=== PATIENT | female | born 1960 | race Caucasian/White ===

== ENCOUNTER 2020-12-29 08:13 | Inpatient (IN) | payer MEDICAID ==
[~2020-12-29] VITALS: Ht 167.6 cm; Wt 55.8 kg
[2020-12-29 08:25] VITALS: BP_SYST 149
--- NOTE | 2020-12-29 08:25 | NUR ---
Patient to ER bed 3 to gown for evaluation. Side rails up. Report given to OCHOA FRAZIER.
[2020-12-29] MEDS ORDERED: NACL 0.9% 1,000 ML IV ONE (08:30)
--- NOTE | 2020-12-29 08:30 | NUR ---
Pt came to ER from abdominal pain, feeling nauseous, hx colon CA, use of hollistic treatment only at home. Pt VSS, resting in [facility], states "I feel like I am dying".
--- NOTE | 2020-12-29 08:40 | NUR ---
ER at bedside examining patient.
[2020-12-29] MEDS ORDERED: ONDANSETRON 4 MG ODT TAB PO ONE (08:45)
--- NOTE | 2020-12-29 09:00 | NUR ---
# 20 gauge angiocath placed to LAC. Use of asceptic technique. Opsite placed over site. Blood return noted. Blood for lab drawn from site. Flushed with 10 cc of normal saline. No evidence of infiltration noted. Patient tolerated well.
[2020-12-29 09:05] LABS: BASOPHILS # (AUTO) 0.1 K/uL (0.0-0.2); BASOPHILS % (AUTO) 0.7 % (0.0-2.0); EOSINOPHILS # (AUTO) 0.1 K/uL (0.0-0.4); EOSINOPHILS % (AUTO) 1.2 % (0.0-4.0); HEMATOCRIT 37.5 % (36-48); HEMOGLOBIN 12.5 g/dL (12.0-16.0); LYMPHOCYTES # (AUTO) 1.1 K/uL (1.0-5.5); LYMPHOCYTES % (AUTO) 13.1 % (20.5-51.5); MEAN CORPUSCULAR HEMOGLOBIN 31 pg (27-31); MEAN CORPUSCULAR HGB CONC 33 % (32-36); MEAN CORPUSCULAR VOLUME 94 fL (79.0-98.0); MONOCYTES # (AUTO) 0.6 K/uL (0.0-1.0); MONOCYTES % (AUTO) 7.2 % (1.7-9.3); NEUTROPHILS # (AUTO) 6.5 K/uL (1.8-7.7); NEUTROPHILS % (AUTO) 77.8 % (40.0-70.0); PLATELET COUNT (AUTO) 376 K/uL (130-430); RED BLOOD CELL COUNT(AUTO) 3.99 MIL/uL (4.2-6.2); RED CELL DISTRIBUTION WIDTH 13.6 % (9.0-15.0); WHITE BLOOD COUNT (AUTO) 8.4 K/uL (4.8-10.8)
[2020-12-29 09:18] LABS: CALCIUM 8.9 mg/dL (8.4-11.0); CREATININE 0.85 mg/dL (0.55-1.30); POTASSIUM 4.2 mmol/L (3.5-5.1)
[2020-12-29 09:23] LABS: ALBUMIN 3.4 g/dL (3.4-4.8); TOTAL BILIRUBIN 0.5 mg/dL (0.0-1.0)
[2020-12-29 12:09] LABS: BILIRUBIN,URINE NEGATIVE (NEGATIVE); CLARITY/URINE CLEAR (CLEAR); COLOR,URINE YELLOW (YELLOW); GLUCOSE,URINE NEGATIVE (NEGATIVE); KETONES,URINE 3+ (NEGATIVE); LEUKOCYTE ESTERASE ,URINE NEGATIVE (NEGATIVE); NITRITE, URINE NEGATIVE (NEGATIVE); PH,URINE 5.5 (5.0-8.0); PROTEIN URINE NEGATIVE (NEGATIVE); UROBILINOGEN,URINE 0.2 (0.2-1.0)
[2020-12-29 12:14] LABS: BLOOD, URINE TRACE (NEGATIVE)
--- NOTE | 2020-12-29 12:20 | NUR ---
Patient will be admitted to care of Jimmie. Admitted to MedSurg unit. Will go to room 123. Belongings list completed. Complete and up to date summary report printed. SBAR report to be given at bedside with opportunity for questions.
[2020-12-29 12:22] LABS: BACTERIA,URINE RARE /HPF (None Seen); RBC,URINE 0-3 /HPF (0-3); WBC,URINE 0-3 /HPF (0-3)
[2020-12-29 12:23] LABS: MUCUS,URINE 1+ /LPF (None Seen)
--- NOTE | 2020-12-29 12:40 | NUR ---
Med Rec completed, no meds at this time
--- NOTE | 2020-12-29 13:19 | NUR ---
Pt resting in rney comfortably no complaints
--- NOTE | 2020-12-29 14:00 | NUR ---
Pt stated she would AMA due to not wanting to have COVID test. Expained risks of AMA and educated
--- NOTE | 2020-12-29 14:12 | NUR ---
Pt stated she would stay considering she not be COVID tested with the understanding that she will be PUI. Med Surg notified, awaiting private room for isolation
[2020-12-29] MEDS ORDERED: ACETAMINOPHEN 325 MG TABLET PO PRN (14:45)
[2020-12-29] MEDS ORDERED: MORPHINE 4 MG INJ. 4 MG/ML VIAL IVP PRN (14:45)
--- NOTE | 2020-12-29 15:02 | NUR ---
PT IS A FULL CODE
--- NOTE | 2020-12-29 15:23 | NUR ---
report received from FREDDIE Morris
[2020-12-29] MEDS: ONDANSETRON HCL 4 MG/2 ML VIAL IVP PRN ×2 (15:38→21:26)
[2020-12-29] MEDS: D5NS 1,000 ML IV SCH (15:39)
--- NOTE | 2020-12-29 16:55 | NUR ---
REPORT GIVEN TO NURSE FOR RM 123.
--- NOTE | 2020-12-29 17:04 | NUR ---
ADMISSION NOTE Received patient from ER via allan, received report from MONSERRAT FRAZIER. Patient admitted with diagnosis of ABDOMINAL PAIN . Patient oriented to hospital routine, call light, toileting and safety-patient verbalized understanding.
--- NOTE | 2020-12-29 17:04 | NUR ---
Patient will be admitted to care of BEDSIDE NURSE . Admitted to MEDSURGE unit. Will go to room 123. Belongings list completed. Complete and up to date summary report printed. SBAR report to be given at bedside with opportunity for questions.
--- NOTE | 2020-12-29 17:06 | NUR ---
CONSULTATION PAGED REASON FOR CONSULTATION:ABDOMINAL PAIN WAS CONSULT CALLED?Y PERSON WHO WAS NOTIFIED:BEKA CONSULTING PHYSICIAN:HANNAH RHOADES [employer] SPECIALTY:GASTROENTEOLOGY [employer] PHONE NUMBER:[phone] REQUESTING PHYSICIAN:AZEB SILVA
[2020-12-29 17:20] VITALS: BP_SYST 154
--- NOTE | 2020-12-29 17:48 | NUR ---
Seen and examined by the medical doctor md Dr. Taylor
--- NOTE | 2020-12-29 17:49 | NUR ---
Ambulates to bathroom with steady gait, on COVID/PUI isolation patient refused for COVID swab
--- NOTE | 2020-12-29 18:33 | NUR ---
Feeling nauseated after clear liquid diet, on iv hydration.
[2020-12-29 20:15] VITALS: BP_SYST 147
[2020-12-30 00:45] VITALS: BP_SYST 141
[2020-12-30] MEDS: D5NS 1,000 ML IV SCH ×3 (00:48→20:59)
[2020-12-30] MEDS: MORPHINE 2 MG/ML INJ. SYRINGE IVP PRN ×2 (00:48→21:04)
[2020-12-30] MEDS: METOCLOPRAMIDE HCL 10 MG/2 ML VIAL IVP PRN ×3 (00:54→20:59)
--- NOTE | 2020-12-30 01:31 | NUR ---
HIGH ALERT NOTE: Called Dr. LAW back AND identified within the medical roster to verify physician authenticity. NOTIFIED THAT PATIENT IS REQUESTING FOR SOMETHING TO HELP HER SLEEP AND/OR FOR AGITATION. ORDERED RESTORIL 15MG PO HSP PRN FOR AGITATION/ANXIETY/SLEEPLESSNESS.
[2020-12-30] MEDS ORDERED: TEMAZEPAM 15 MG CAPSULE PO PRN (01:45)
--- NOTE | 2020-12-30 07:40 | NUR ---
OPENING NOTES PT AWAKE, ALERT, AND ORIENTED. NONLABORED BREATHING NOTED ON ROOM AIR. PT C/O PAIN ON IV LINE, WILL ATTEMPT TO RE-INSERT. NO ACUTE DISTRESS NOTED. ALL NEEDS MET. CALL LIGHT IN REACH. FALL AND ASPIRATION PRECAUTIONS IN PLACE.
[2020-12-30 08:00] VITALS: BP_SYST 132
--- NOTE | 2020-12-30 09:45 | NUR ---
IV RE-INSERTION: Complaining of pain to IV site. Attempted to re-insert on right forearm. Unable to successfully insert. Asked other RN, awaiting for available time.
[2020-12-30] MEDS ORDERED: BARIUM SULFATE 135 ML SUSP.RECON (E-Z-HD) PO ONE (10:07)
--- NOTE | 2020-12-30 10:10 | NUR ---
PT TAKEN OFF THE FLOOR TO RADIOLOGY
[2020-12-30 12:00] VITALS: BP_SYST 127
--- NOTE | 2020-12-30 12:39 | NUR ---
IV RE-INSERTION: FREDDIE Mc re-inserted 22G IV line on right forearm, successful after first attempt. pt c/o nausea, administered prn medication and continued D5NS at 125mL/hr. will monitor for signs of infiltration
[2020-12-30 16:00] VITALS: BP_SYST 136
--- NOTE | 2020-12-30 18:56 | NUR ---
CLOSING NOTES PT AWAKE, ALERT, AND ORIENTED. NONLABORED BREATHING NOTED ON ROOM AIR. IV LINE INTACT AND PATENT, NO SIGNS OF INFILTRATION NOTED, FLUIDS RUNNING ORDERED. NO ACUTE DISTRESS NOTED. ALL NEEDS MET. CALL LIGHT IN REACH. FALL AND ASPIRATION PRECAUTIONS IN PLACE. WILL ENDORSE TO NOC NURSE
--- NOTE | 2020-12-30 19:35 | NUR ---
Opening note Received patient awake, sitting in high fowlers position. Non labored breathing on room air. IVF infusing via IV to RFA. Side rails up 2x, bed is locked in lowest position and call light w/in reach. Patient is ambulatory w/steady gait and does not have bed alarm. She demonstrates use of call light. She has visitor at bed side. Updated board and reviewed isolation precautions.
[2020-12-30 20:00] VITALS: BP_SYST 141
--- NOTE | 2020-12-30 20:59 | NUR ---
Meds, IVF Patient requesting nausea medication and pain med. She requested Reglan and it was administered along w/2mg Morphine. IVF empty and hung new bag; infusing as ordered. Provided warm blankets, towels, wash wipes as requested. Call light w/in reach. Isolation precautions observed.
--- NOTE | 2020-12-30 23:30 | NUR ---
V/S, IV attempt VSS and presently denies nausea and reports no pain. Two IV attempts were unsuccessful; requested a second nurse to start IV.
[2020-12-31] VITALS: BP_SYST 148
--- NOTE | 2020-12-31 00:30 | NUR ---
IV start New IV #22 angiocath was placed to left wrist by charge nurse.
[2020-12-31] MEDS: ONDANSETRON HCL 4 MG/2 ML VIAL IVP PRN ×3 (01:34→22:29)
[2020-12-31] MEDS: MORPHINE 2 MG/ML INJ. SYRINGE IVP PRN ×4 (01:44→22:26)
--- NOTE | 2020-12-31 01:45 | NUR ---
Zofran, Morphine Patient requesting nausea medication and administered Zofran as ordered. She reports abdominal pain and requesting medication; 2mg Morphine administered.
[2020-12-31] MEDS: D5NS 1,000 ML IV SCH ×3 (06:45→23:54)
--- NOTE | 2020-12-31 07:10 | NUR ---
SBAR report to GI / closing note Patient signed EGD consent form, she had no further needs. GI called and requested SBAR report, which was provided. Endorsed care to day shift nurse; patient is stable.
[2020-12-31] MEDS: METOCLOPRAMIDE HCL 10 MG/2 ML VIAL IVP PRN ×2 (07:30→15:28)
[2020-12-31 08:00] VITALS: BP_SYST 145
[2020-12-31] MEDS ORDERED: MEPERIDINE 100 MG INJ. 100 MG/ML VIAL ONE (08:02)
[2020-12-31] MEDS ORDERED: SIMETHICONE 40 MG/0.6 ML ML ONE (08:02)
[2020-12-31] MEDS ORDERED: MIDAZOLAM HCL 5 MG/5 ML VIAL ONE (08:03)
--- NOTE | 2020-12-31 08:50 | NUR ---
PT STATED SHE IS UNABLE TO DRINK GOLYTELY. PT INFORMED MD WILL BE NOTIFIED.
[2020-12-31 12:00] VITALS: BP_SYST 140
--- NOTE | 2020-12-31 12:05 | NUR ---
Note Pt is on PUI precautions as pt refuses to do Covid test. Pt had EGD procedure in her room from 0930am to 1030am. Pt requesting pain medications and nausea medication at 11am. Both given and pt asleep at this time.
--- NOTE | 2020-12-31 13:36 | NUR ---
Dietitian Recommendations *Continue NPO. *Recommend: advance diet when medically appropriate. Please see Nutritional Assessment for details. ANAHY BURCH
[2020-12-31 15:39] LABS: BASOPHILS % (AUTO) 0.8 % (0.0-2.0); EOSINOPHILS # (AUTO) 0.1 K/uL (0.0-0.4); EOSINOPHILS % (AUTO) 2.3 % (0.0-4.0); HEMATOCRIT 35.6 % (36-48); HEMOGLOBIN 12.2 g/dL (12.0-16.0); LYMPHOCYTES % (AUTO) 17.5 % (20.5-51.5); MEAN CORPUSCULAR HEMOGLOBIN 31 pg (27-31); MEAN CORPUSCULAR HGB CONC 34 % (32-36); MEAN CORPUSCULAR VOLUME 92 fL (79.0-98.0); MONOCYTES # (AUTO) 0.5 K/uL (0.0-1.0); MONOCYTES % (AUTO) 8.5 % (1.7-9.3); NEUTROPHILS % (AUTO) 70.9 % (40.0-70.0); PLATELET COUNT (AUTO) 361 K/uL (130-430); RED BLOOD CELL COUNT(AUTO) 3.87 MIL/uL (4.2-6.2); WHITE BLOOD COUNT (AUTO) 5.7 K/uL (4.8-10.8)
[2020-12-31 15:55] LABS: CALCIUM 8.6 mg/dL (8.4-11.0); CREATININE 0.67 mg/dL (0.55-1.30)
[2020-12-31 16:00] VITALS: BP_SYST 138
[2020-12-31 16:05] LABS: POTASSIUM 2.6 mmol/L (3.5-5.1)
[2020-12-31] MEDS ORDERED: BISACODYL 5 MG TABLET.DR (DULCOLAX) PO ONE (17:00)
[2020-12-31] MEDS ORDERED: POTASSIUM CHLORIDE 40 MEQ in NS 250 ML IV ONE (17:00)
[2020-12-31] MEDS ORDERED: GOLYTELY / COLYTE SOLUTION 4 LITERS PO ONE (18:00)
--- NOTE | 2020-12-31 18:55 | NUR ---
Note Pt has been checked on q1' and PRN all shift for needs and care. Isolation precautions all shift for PUI. Pt took her Dulcolax tabs, stated she did not eat much the last 5 days and wants to drink Alirio slowly - has nausea/vomiting the last few days. Call light within reach. Pain tolerable at this time.
[2020-12-31 20:00] VITALS: BP_SYST 145
--- NOTE | 2020-12-31 20:51 | NUR ---
Jaswant Taylor s/w Luz Maria
--- NOTE | 2020-12-31 21:03 | NUR ---
DR. CEBALLOS CALLED BACK AND HE WAS INFORMED PT IS UNABLE TO DRINK GOLYTELY. NEW ORDERS RECEIVED FOR PT TO RESUME CLEAR LIQUID DIET, DRINK SIPS OF GOLYTELY UNTIL FINISHED AND TO CANCEL TAP WATER ENEMA IN AM..
--- NOTE | 2020-12-31 22:29 | NUR ---
ZOFRAM 4MG GIVEN IV FOR C/O NAUSEA AND VOMITING.
--- NOTE | 2020-12-31 23:28 | NUR ---
DR. CEBALLOS CALLED BACK AND GAVE NEW ORDERS FOR MAG CITRATE AND TAP WATER ENEMA IN AM.
[2020-12-31] MEDS ORDERED: MAGNESIUM CITRATE 300 ML ORAL SOLUTION PO ONE (23:30)
--- NOTE | 2020-12-31 23:50 | NUR ---
PT VOMITED ALL THE MAG CITRATE THAT SHE DRANK. WILL NOTIFY DR. CEBALLOS.
--- NOTE | 2021-01-01 00:57 | NUR ---
Paged Dr. Logan s/w Dimple
[2021-01-01] MEDS ORDERED: BISACODYL 5 MG TABLET.DR (DULCOLAX) PO ONE (06:30)
--- NOTE | 2021-01-01 06:30 | NUR ---
DR. PENDLETON CALLED BACK AND WAS INFORMED PT VOMITED MAG CITRATE LAST NIGHT. NEW ORDERS GIVEN FOR 4 DULCOLAX TABLETS AND TAP WATER ENEMA X2.
[2021-01-01] MEDS ORDERED: BISACODYL 5 MG TABLET.DR (DULCOLAX) ONE (06:49)
--- NOTE | 2021-01-01 06:51 | NUR ---
TAP WATER ENEMA GIVEN X2 AND PT'S BOWEL OUTPUT IS NOT CLEAR. WILL NOTIFY DR. PENDLETON.
[2021-01-01] MEDS: ONDANSETRON HCL 4 MG/2 ML VIAL IVP PRN ×3 (06:55→20:23)
--- NOTE | 2021-01-01 07:10 | NUR ---
ENDORSED TAP WATER ENEMA'S STATUS TO DAY SHIFT NURSE FOR FOLLOW UP WITH DR. PENDLETON.
[2021-01-01] MEDS ORDERED: MEPERIDINE 100 MG INJ. 100 MG/ML VIAL ONE (07:16)
[2021-01-01] MEDS ORDERED: SIMETHICONE 40 MG/0.6 ML ML ONE (07:16)
[2021-01-01] MEDS ORDERED: MIDAZOLAM HCL 5 MG/5 ML VIAL ONE (07:17)
[2021-01-01 08:00] VITALS: BP_SYST 144
--- NOTE | 2021-01-01 08:00 | NUR ---
RECEIVED PATIENT AAO ON ROOM AIR BREATHING EVEN AND UNLABORED NO SIGN OF DISTRESS. IV INFUSING AT PRESCRIBED RATE. SAFETY PRECAUTIONS IN PLACE. WILL CONTINUE TO MONITOR.
[2021-01-01 08:21] LABS: BASOPHILS % (AUTO) 0.7 % (0.0-2.0); EOSINOPHILS # (AUTO) 0.1 K/uL (0.0-0.4); EOSINOPHILS % (AUTO) 2.1 % (0.0-4.0); HEMATOCRIT 35.6 % (36-48); HEMOGLOBIN 12.1 g/dL (12.0-16.0); LYMPHOCYTES # (AUTO) 0.8 K/uL (1.0-5.5); MEAN CORPUSCULAR HEMOGLOBIN 31 pg (27-31); MEAN CORPUSCULAR HGB CONC 34 % (32-36); MEAN CORPUSCULAR VOLUME 91 fL (79.0-98.0); MONOCYTES # (AUTO) 0.4 K/uL (0.0-1.0); MONOCYTES % (AUTO) 7.7 % (1.7-9.3); NEUTROPHILS # (AUTO) 3.9 K/uL (1.8-7.7); NEUTROPHILS % (AUTO) 74.5 % (40.0-70.0); PLATELET COUNT (AUTO) 357 K/uL (130-430); RED CELL DISTRIBUTION WIDTH 13.7 % (9.0-15.0); WHITE BLOOD COUNT (AUTO) 5.2 K/uL (4.8-10.8)
[2021-01-01 08:31] LABS: CALCIUM 8.3 mg/dL (8.4-11.0); CREATININE 0.59 mg/dL (0.55-1.30)
[2021-01-01 08:32] LABS: INR 1.1 (0.8-1.2); PROTHROMBIN TIME 11.6 SECS (9.5-12.5)
[2021-01-01 08:34] LABS: POTASSIUM 2.6 mmol/L (3.5-5.1)
[2021-01-01] MEDS ORDERED: POTASSIUM CHLORIDE 60 MEQ in NS 500 ML IV SCH (08:45)
[2021-01-01] MEDS ORDERED: POTASSIUM CHLORIDE 20 MEQ/PKT PACKET PO ONE ×2 (10:00→20:00)
--- NOTE | 2021-01-01 10:15 | NUR ---
REPORT GIVEN TO SAURABH. PATIENT RESTING IN BED ON ROOM AIR BREATHING EVEN AND UNLABORED NO SIGN OF DISTRESS. SAFETY PRECAUTIONS IN PLACE.
--- NOTE | 2021-01-01 10:31 | NUR ---
RECEIVED REPORT FROM CHAPO (RN) USING SBAR REPORTING. PATIENT STABLE AT THIS TIME. WILL CONTINUE TO MONITOR.
[2021-01-01] MEDS ORDERED: MAGNESIUM SULFATE/D5W 100 ML IV ONE (10:45)
[2021-01-01 13:02] VITALS: BP_SYST 131
[2021-01-01] MEDS: MORPHINE 2 MG/ML INJ. SYRINGE IVP PRN ×2 (14:18→21:56)
[2021-01-01] MEDS: D5NS 1,000 ML IV SCH ×2 (14:45→23:35)
[2021-01-01 15:28] VITALS: BP_SYST 147
[2021-01-01 16:00] VITALS: BP_SYST 147
[2021-01-01 16:16] LABS: CREATININE 0.58 mg/dL (0.55-1.30)
[2021-01-01 16:20] LABS: POTASSIUM 2.9 mmol/L (3.5-5.1)
[2021-01-01] MEDS ORDERED: COMMUNICATION ORDER XX ONE (18:00)
[2021-01-01] MEDS: POLYETHYLENE GLYCOL 3350, 17 GM/ POWD.PACK PO SCH (18:55)
--- NOTE | 2021-01-01 19:05 | NUR ---
CLOSING NOTES: PATIENT IS AWAKE, ALERT LAYING DOWN IN BED. TOLERATED OXYGEN ON ROOM AIR WITH NO DISTRESS NOTED. IV LINE PATENT AND INTACT NO INFILTRATION NOTED. DENIES ANY PAIN AT THE MOMENT. SAFETY, FALL, ISOLATION, AND ASPIRATION PRECAUTIONS REMAINED IN PLACE. BED LOCKED IN LOWEST POSITION AND CALL LIGHT IN REACH. WILL CONTINUE TO MONITOR PATIENT FOR ANY CHANGES. Addendum: 01/01/21 at 1920 by Yared Gould RN WILL ENDORSE PATIENT CARE TO ONCOMING SPORT PSYCHOLOGIST NURSE.
--- NOTE | 2021-01-01 19:45 | NUR ---
Opening note Received patient awake, sitting on chair at bedside. Non labored breathing on room air. IVF infusing via IV to Lt wrist. Side rails up 2x, bed is locked in lowest position and call light w/in reach. Patient is ambulatory w/steady gait and does not have bed alarm. She demonstrates use of call light. Patient started taking Miralax w/ Gatorade and had a bowel movement. Updated board and reviewed isolation precautions.
[2021-01-01 20:00] VITALS: BP_SYST 120
--- NOTE | 2021-01-01 20:25 | NUR ---
Meds- Zofran Patient reporting nausea and Zofran given as ordered. Due med, 40 meq KCL packet given; she swallowed, felt nausea-did not have emesis; tolerated. She has taken in 40% of Miralax-gatorade solution is encouraged to take more. There was small spill/soiled restroom and it was cleaned. She was provided w/new anti slip socks and also provided with Bedside commode.TM
[2021-01-01] MEDS: METOCLOPRAMIDE HCL 10 MG/2 ML VIAL IVP PRN (21:42)
[2021-01-01 21:53] LABS: CALCIUM 8.1 mg/dL (8.4-11.0); CREATININE 0.7 mg/dL (0.55-1.30)
--- NOTE | 2021-01-01 21:56 | NUR ---
nausea/vomit, pain med Patient had emesis and noted 200ml in bag. Administered Reglan IVP as ordered. She is reporting moderate abdominal pain and Morphine 2mg administered. She continues to have bowel movements; last one appears yellow with very small particles.
[2021-01-01 22:06] LABS: POTASSIUM 2.9 mmol/L (3.5-5.1)
--- NOTE | 2021-01-01 22:06 | NUR ---
critical lab Received critical lab result from Shireen Frye level is 2.9, will notify
--- NOTE | 2021-01-01 22:20 | NUR ---
HIGH ALERT NOTE: Called Dr. Chirinos back at [phone] identified within the medical roster to verify physician authenticity for K-rider orders received.
[2021-01-01] MEDS: KCL 20 mEq in 100 mL (PREMIX) 100 ML IV SCH (23:35)
--- NOTE | 2021-01-01 23:40 | NUR ---
K-rider K-rider was started; patient tolerating
[2021-01-02] VITALS: BP_SYST 150
[2021-01-02] MEDS: ONDANSETRON HCL 4 MG/2 ML VIAL IVP PRN ×2 (02:16→12:57)
[2021-01-02] MEDS: POLYETHYLENE GLYCOL 3350, 17 GM/ POWD.PACK PO SCH (02:17)
[2021-01-02] MEDS: KCL 20 mEq in 100 mL (PREMIX) 100 ML IV SCH ×2 (02:17→04:27)
--- NOTE | 2021-01-02 02:17 | NUR ---
2nd of 3rd dose of K-rider 1st dose of 3 is complete and patient tolerated; no sign of infiltration and no redness. Hung second dose. Patient having nausea and Zofran administered. She ambulated to restroom and bowel is not clear; light brown particles noted; she will receive her 2nd dose of Miralax w/Gatorade.
--- NOTE | 2021-01-02 05:36 | NUR ---
Dr. Chirinos S/W Dr. Chirinos and informed K-rider infusing and done 0630. Also report patient drank her colonoscopy prep of Miralax and bowel movements are clear with sandlike particles; He gave orders for lab BMP and Mg and also tap water enema x1; TORB
[2021-01-02] MEDS: METOCLOPRAMIDE HCL 10 MG/2 ML VIAL IVP PRN (05:53)
--- NOTE | 2021-01-02 06:30 | NUR ---
K-rider complete, tap water enema done Tap water enema done one time. Explained procedure to patient; tolerated. Bowel is clear yellow w/ minimal sandlike particle noted.
[2021-01-02] MEDS ORDERED: SIMETHICONE 40 MG/0.6 ML ML ONE (06:46)
[2021-01-02 07:34] LABS: CALCIUM 8.1 mg/dL (8.4-11.0); CREATININE 0.51 mg/dL (0.55-1.30); POTASSIUM 3.4 mmol/L (3.5-5.1)
--- NOTE | 2021-01-02 07:59 | NUR ---
opening notes pt prepped for colonoscopy at this time.
[2021-01-02 08:00] VITALS: BP_SYST 131
[2021-01-02] MEDS: D5NS 1,000 ML IV SCH ×3 (08:00→20:35)
[2021-01-02] MEDS: fentaNYL CITRATE/PF 100 MCG/2 ML AMP ONE ×3 (08:03→08:27)
[2021-01-02] MEDS: MIDAZOLAM HCL 5 MG/5 ML VIAL ONE ×5 (08:03→08:39)
[2021-01-02] MEDS ORDERED: DIPHENHYDRAMINE INJ 50 MG/ML VIAL ONE (08:34)
[2021-01-02] MEDS ORDERED: fentaNYL CITRATE/PF 100 MCG/2 ML AMP ONE (08:41)
[2021-01-02] MEDS ORDERED: ONDANSETRON HCL 4 MG/2 ML VIAL IVP ONE (08:48)
--- NOTE | 2021-01-02 09:00 | NUR ---
IV RE-INSERTION: IV LINE INFILTRATED. FREDDIE MCKEON SUCCESSFULLY INSERTED 22G ON RIGHT FOREARM. Will observe for any signs of infiltration. PT HAVING COLONOSCOPY DONE AT THIS TIME AT BEDSIDE.
--- NOTE | 2021-01-02 09:35 | NUR ---
COLONSCOPY DONE AT THIS TIME
--- NOTE | 2021-01-02 09:39 | NUR ---
CONSULTATION: REASON FOR CONSULT: CECAL MASS CONSULTING PHYSICIAN: MARIUSZ ORDERED BY: ANI SPOKE WITH STEFAN [phone]
[2021-01-02 12:00] VITALS: BP_SYST 136
--- NOTE | 2021-01-02 12:57 | NUR ---
pt c/o nausea, administered prn med as ordered per md, education given, tolerated well. pt eating lunch at this time
[2021-01-02 16:00] VITALS: BP_SYST 143
--- NOTE | 2021-01-02 18:33 | NUR ---
CLOSING NOTES PT AWAKE, ALERT, AND ORIENTED. NONLABORED BREATHING NOTED ON ROOM AIR, TOLERATING WELL. IV LINE INTACT AND PATENT, NO SIGNS OF INFILTRATION NOTED, FLUIDS RUNNING ORDERED. NO ACUTE DISTRESS NOTED. ALL NEEDS MET. CALL LIGHT IN REACH. FALL AND ASPIRATION PRECAUTIONS IN PLACE. SEEN BY DR. VEE AT BEDSIDE. WILL ENDORSE TO NOC NURSE.
--- NOTE | 2021-01-02 19:30 | NUR ---
Opening notes Received Pt resting in bed with HOB elevated. Alert and awake, verbally responsive. Stable, 0 distress noted. IVF infusing, IV site L wrist, patent and intact, 0 s/s of infiltration. On RA, stable. Bilateral rails up, bed to lowest position and call light with reach. Able to demonstrate use of call light. Droplet precaution reviewed with PUI.
[2021-01-02 21:41] VITALS: BP_SYST 145
[2021-01-03 00:02] VITALS: BP_SYST 120
[2021-01-03] MEDS: D5NS 1,000 ML IV SCH (03:34)
--- NOTE | 2021-01-03 06:19 | NUR ---
Closing notes Pt resting in bed with HOB elevated, sleeping and easily awaken. Easily aroused by voice and tactile stimuli. Verbally responsive. 0s stat 97% RA, vitals stable, no s/s of distress or complications noted. IVF patent and intact and running as per ordered, no infiltration noted. Able to ambulate to bathroom by self and remain pt to call for assistance. Bed to the lowest with bilateral side rails up and call light within reach.
[2021-01-03 06:58] LABS: ALBUMIN 2.2 g/dL (3.4-4.8); BILIRUBIN,DIRECT 0.1 mg/dL (0.0-0.3); TOTAL BILIRUBIN 0.3 mg/dL (0.0-1.0)
[2021-01-03 08:26] VITALS: BP_SYST 135
--- NOTE | 2021-01-03 08:28 | NUR ---
Tolerate soft bland diet no nausea no abdominal pain , seen and examined by the GI Dr. Chirinos.
--- NOTE | 2021-01-03 09:49 | NUR ---
Paged Dr. Rodrigues for clearance for discharge
[2021-01-03 10:16] VITALS: BP_SYST 135
--- NOTE | 2021-01-03 10:30 | NUR ---
D/C Patient Patient given D/C instructions. Exit Care provided. Patient verbalized understanding. MD discussed with patient the results and treatment provided. Ambulatory with steady gait for discharge to home. Patient in stable condition, ID band removed. IV catheter removed, intact and dressing applied, no active bleeding. Patient educated on pain management, advance diet as tolerated All belongings sent with patient.
--- NOTE | 2021-01-03 11:10 | NUR ---
Patient discharged home accompanied by friend
== END 2021-01-03 11:10 | disposition home or self-care (01) | DRG 241 ==
LOC: SED 08:13 → SMU 12:14 → STU 01-01 10:06 → SMU 01-03 09:30
PROVIDERS: ADMIT Internal Medicine Hospice and Palliative Medicine; ATTEND Internal Medicine Hospice and Palliative Medicine
PROC: 0DB78ZX Excision of Stomach, Pylorus, Via Natural or Artificial Opening Endoscopic, Diagnostic (ICD-10-PCS; principal; 2020-12-31 08:30)
PROC: 0W3P8ZZ Control Bleeding in Gastrointestinal Tract, Via Natural or Artificial Opening Endoscopic (ICD-10-PCS; 2020-12-31 08:30)
PROC: 0DBE8ZX Excision of Large Intestine, Via Natural or Artificial Opening Endoscopic, Diagnostic (ICD-10-PCS; 2021-01-02)
PROC: 0DBE8ZZ Excision of Large Intestine, Via Natural or Artificial Opening Endoscopic (ICD-10-PCS; 2021-01-02)
PROC: 3E0H8GC Introduction of Other Therapeutic Substance into Lower GI, Via Natural or Artificial Opening Endoscopic (ICD-10-PCS; 2021-01-02)
DX: K25.9 Gastric ulcer, unspecified as acute or chronic, without hemorrhage or perforation (principal); K31.1 Adult hypertrophic pyloric stenosis; K29.70 Gastritis, unspecified, without bleeding; K44.9 Diaphragmatic hernia without obstruction or gangrene; K26.9 Duodenal ulcer, unspecified as acute or chronic, without hemorrhage or perforation; K29.80 Duodenitis without bleeding; K64.8 Other hemorrhoids; K63.5 Polyp of colon; R73.9 Hyperglycemia, unspecified; E87.6 Hypokalemia; Z87.19 Personal history of other diseases of the digestive system; Z85.038 Personal history of other malignant neoplasm of large intestine; Z80.3 Family history of malignant neoplasm of breast; Z90.710 Acquired absence of both cervix and uterus
CPT/HCPCS: 36415; 43239; 43255; 45381; 45385; 74249; 76376; 76705; 80048; 80053; 80076; 81000; 82378; 82941; 83605; 83690; 83735; 85025; 85610-TC; 87081; 88305; 88312; 88313; 88342; 96360; 99285; G0378; J1200; J2175; J2250; J2270; J2405; J2765; J3010; J3480; J7040; J7050; Q0162; Q9967

== ENCOUNTER 2021-01-08 20:36 | Inpatient (IN) | payer MEDICAID ==
[~2021-01-08] VITALS: Ht 167.6 cm; Wt 55.3 kg
[~2021-01-08 20:36] MED LIST: BUPIVACAINE /EPINEPHRINE/PF 0.5% 30 ML VIAL INJ ONE; D5W 100 ML IV.SOLN IV ONE; DEXAMETHASONE SOD PHOSPHATE 4 MG/ML VIAL IVP ONE; GLYCOPYRROLATE 0.2 MG/ML VIAL IJ ONE; HYDROmorphone 2 MG/ML VIAL IVP ONE; LR 1,000 ML IV.SOLN IV ONE; METOCLOPRAMIDE HCL 10 MG/2 ML VIAL IVP ONE; MIDAZOLAM HCL 5 MG/5 ML VIAL IVP ONE; ONDANSETRON HCL 4 MG/2 ML VIAL IVP ONE; PHENYLEPHRINE HCL 10 MG/ML VIAL (NEOSYNEPHRINE) IV ONE; PROPOFOL 200MG/ 20ML VIAL (DIPRIVAN) IV ONE; SEVOFLURANE 15 MIN GAS INH ONE; SUCCINYLCHOLINE CHLORIDE 20 MG/ML(QUELICIN) IVP ONE; cefOXitin SODIUM 2 GM/VIAL (MEFOXIN) IV ONE
[2021-01-08 20:43] VITALS: BP_SYST 147
[2021-01-08] MEDS ORDERED: ONDANSETRON HCL 4 MG/2 ML VIAL IVP ONE (21:00)
[2021-01-08] MEDS ORDERED: MORPHINE 4 MG INJ. 4 MG/ML VIAL IVP ONE (21:00)
[2021-01-08] MEDS ORDERED: NACL 0.9% 1,000 ML IV ONE (21:00)
[2021-01-08 21:31] LABS: BASOPHILS % (AUTO) 0.6 % (0.0-2.0); EOSINOPHILS % (AUTO) 0.7 % (0.0-4.0); HEMATOCRIT 35.7 % (36-48); LYMPHOCYTES # (AUTO) 0.9 K/uL (1.0-5.5); LYMPHOCYTES % (AUTO) 13.7 % (20.5-51.5); MEAN CORPUSCULAR HEMOGLOBIN 31 pg (27-31); MEAN CORPUSCULAR HGB CONC 34 % (32-36); MEAN CORPUSCULAR VOLUME 93 fL (79.0-98.0); MONOCYTES # (AUTO) 0.5 K/uL (0.0-1.0); MONOCYTES % (AUTO) 7.2 % (1.7-9.3); NEUTROPHILS % (AUTO) 77.8 % (40.0-70.0); PLATELET COUNT (AUTO) 351 K/uL (130-430); RED BLOOD CELL COUNT(AUTO) 3.83 MIL/uL (4.2-6.2); RED CELL DISTRIBUTION WIDTH 14.4 % (9.0-15.0); WHITE BLOOD COUNT (AUTO) 6.4 K/uL (4.8-10.8)
[2021-01-08 21:52] LABS: CALCIUM 8.8 mg/dL (8.4-11.0); CREATININE 0.81 mg/dL (0.55-1.30)
[2021-01-08 21:58] LABS: ALBUMIN 3.3 g/dL (3.4-4.8); TOTAL BILIRUBIN 0.6 mg/dL (0.0-1.0)
[2021-01-08 22:01] LABS: POTASSIUM 2.7 mmol/L (3.5-5.1)
[2021-01-08] MEDS ORDERED: METOCLOPRAMIDE HCL 10 MG/2 ML VIAL IVP ONE (22:30)
[2021-01-08] MEDS ORDERED: PROCHLORPERAZINE EDISYLATE 10 MG/2 ML VIAL IVP ONE (22:30)
[2021-01-08] MEDS ORDERED: PANTOPRAZOLE SODIUM 40 MG/VIAL (PROTONIX) IVP ONE (23:00)
[2021-01-08] MEDS ORDERED: MAG HYDROX/AL HYDROX/SIMETH 30 ML, DICYCLOMINE HCL 20 MG, LIDOCAINE VISCOUS 2% 15ML (PO... PO ONE ×3 (23:00)
[2021-01-08] MEDS ORDERED: MAGNESIUM SULFATE 50 ML IV PRN (23:45)
[2021-01-08] MEDS ORDERED: MUPIROCIN 2% TOPICAL OINTMENT 22 GM NS PRN (23:45)
[2021-01-08] MEDS ORDERED: METOCLOPRAMIDE HCL 10 MG/2 ML VIAL IVP PRN (23:45)
[2021-01-08] MEDS ORDERED: ZOLPIDEM TARTRATE 5 MG TABLET PO PRN (23:45)
[2021-01-08] MEDS ORDERED: DOCUSATE SODIUM 100 MG CAPSULE PO PRN (23:45)
[2021-01-08] MEDS ORDERED: D5NS 1,000 ML IV ONE (23:45)
[2021-01-08] MEDS ORDERED: ACETAMINOPHEN 325 MG TABLET PO PRN (23:45)
[2021-01-08] MEDS ORDERED: CANNABIS (23:55)
[2021-01-09] MEDS: POTASSIUM CHLORIDE 20 MEQ TAB.PRT.SR PO PRN ×2 (02:17→09:25)
[2021-01-09 03:35] VITALS: BP_SYST 125
[2021-01-09 06:35] LABS: BASOPHILS % (AUTO) 0.8 % (0.0-2.0); EOSINOPHILS # (AUTO) 0.1 K/uL (0.0-0.4); EOSINOPHILS % (AUTO) 2.9 % (0.0-4.0); HEMATOCRIT 28.8 % (36-48); HEMOGLOBIN 9.6 g/dL (12.0-16.0); LYMPHOCYTES # (AUTO) 1.3 K/uL (1.0-5.5); LYMPHOCYTES % (AUTO) 27.2 % (20.5-51.5); MEAN CORPUSCULAR HEMOGLOBIN 31 pg (27-31); MEAN CORPUSCULAR HGB CONC 34 % (32-36); MEAN CORPUSCULAR VOLUME 94 fL (79.0-98.0); MONOCYTES # (AUTO) 0.6 K/uL (0.0-1.0); NEUTROPHILS # (AUTO) 2.6 K/uL (1.8-7.7); NEUTROPHILS % (AUTO) 55.1 % (40.0-70.0); PLATELET COUNT (AUTO) 276 K/uL (130-430); RED BLOOD CELL COUNT(AUTO) 3.07 MIL/uL (4.2-6.2); RED CELL DISTRIBUTION WIDTH 14.1 % (9.0-15.0); WHITE BLOOD COUNT (AUTO) 4.6 K/uL (4.8-10.8)
[2021-01-09 06:55] LABS: CALCIUM 7.9 mg/dL (8.4-11.0); CREATININE 0.73 mg/dL (0.55-1.30)
[2021-01-09 07:17] LABS: POTASSIUM 2.8 mmol/L (3.5-5.1)
[2021-01-09 08:00] VITALS: BP_SYST 140
[2021-01-09] MEDS ORDERED: POTASSIUM CHLORIDE 40 MEQ, LIDOCAINE JECT 2% PF 100 MG 50 MG in NS 250 ML IV ONE (09:00)
[2021-01-09] MEDS: HEPARIN SODIUM,PORCINE 5,000 UNITS/ML VIAL SUBCUT SCH ×2 (09:26→21:00)
[2021-01-09 12:18] VITALS: BP_SYST 140
[2021-01-09] MEDS: ONDANSETRON HCL 4 MG/2 ML VIAL IVP PRN ×2 (15:06→21:45)
[2021-01-09 16:38] VITALS: BP_SYST 155
[2021-01-09 20:00] VITALS: BP_SYST 147
[2021-01-09] MEDS: LORazepam 2 MG/ML VIAL IVP PRN (21:45)
[2021-01-10 01:00] VITALS: BP_SYST 124
[2021-01-10 06:43] LABS: BASOPHILS % (AUTO) 1.2 % (0.0-2.0); EOSINOPHILS # (AUTO) 0.2 K/uL (0.0-0.4); EOSINOPHILS % (AUTO) 5.1 % (0.0-4.0); HEMATOCRIT 31.8 % (36-48); HEMOGLOBIN 10.5 g/dL (12.0-16.0); LYMPHOCYTES # (AUTO) 1.2 K/uL (1.0-5.5); LYMPHOCYTES % (AUTO) 30.2 % (20.5-51.5); MEAN CORPUSCULAR HEMOGLOBIN 31 pg (27-31); MEAN CORPUSCULAR HGB CONC 33 % (32-36); MEAN CORPUSCULAR VOLUME 95 fL (79.0-98.0); MONOCYTES # (AUTO) 0.5 K/uL (0.0-1.0); MONOCYTES % (AUTO) 12.5 % (1.7-9.3); PLATELET COUNT (AUTO) 259 K/uL (130-430); RED BLOOD CELL COUNT(AUTO) 3.36 MIL/uL (4.2-6.2); RED CELL DISTRIBUTION WIDTH 14.3 % (9.0-15.0); WHITE BLOOD COUNT (AUTO) 3.9 K/uL (4.8-10.8)
[2021-01-10 07:29] LABS: CALCIUM 8.5 mg/dL (8.4-11.0); CREATININE 0.74 mg/dL (0.55-1.30); POTASSIUM 3.6 mmol/L (3.5-5.1)
[2021-01-10 08:00] VITALS: BP_SYST 121
[2021-01-10] MEDS: HEPARIN SODIUM,PORCINE 5,000 UNITS/ML VIAL SUBCUT SCH ×2 (08:16→20:13)
[2021-01-10] MEDS: ONDANSETRON HCL 4 MG/2 ML VIAL IVP PRN ×3 (08:38→22:07)
[2021-01-10 12:29] VITALS: BP_SYST 104
[2021-01-10] MEDS ORDERED: NEOMYCIN SULFATE 500 MG TABLET PO ONE (14:00)
[2021-01-10] MEDS: LORazepam 2 MG/ML VIAL IVP PRN ×2 (15:54→20:14)
[2021-01-10 16:17] VITALS: BP_SYST 122
[2021-01-10 16:59] LABS: PROTHROMBIN TIME 10.4 SECS (9.5-12.5)
[2021-01-10] MEDS: NEOMYCIN SULFATE 500 MG TABLET PO SCH ×2 (18:29→23:04)
[2021-01-10 20:00] VITALS: BP_SYST 133
[2021-01-10] MEDS ORDERED: MAGNESIUM CITRATE 300 ML ORAL SOLUTION PO ONE (20:00)
[2021-01-10 22:54] LABS: BILIRUBIN,URINE NEGATIVE (NEGATIVE); BLOOD, URINE NEGATIVE (NEGATIVE); COLOR,URINE YELLOW (YELLOW); GLUCOSE,URINE NEGATIVE (NEGATIVE); KETONES,URINE NEGATIVE (NEGATIVE); LEUKOCYTE ESTERASE ,URINE 1+ (NEGATIVE); NITRITE, URINE NEGATIVE (NEGATIVE); PH,URINE 8.5 (5.0-8.0); PROTEIN URINE NEGATIVE (NEGATIVE)
[2021-01-10 23:18] LABS: CLARITY/URINE HAZY (CLEAR)
[2021-01-11] VITALS (10 sets, daily range): BP systolic 113–142
[2021-01-11] MEDS: MORPHINE 2 MG/ML INJ. SYRINGE IVP PRN ×3 (00:06→20:52)
[2021-01-11 00:18] LABS: BACTERIA,URINE FEW /HPF (None Seen); RBC,URINE 0-3 /HPF (0-3); URINE AMORPHOUS PHOSPHATES 2+ /HPF (None Seen)
[2021-01-11] MEDS: NEOMYCIN SULFATE 500 MG TABLET PO SCH (06:00)
[2021-01-11 06:27] LABS: BASOPHILS # (AUTO) 0.1 K/uL (0.0-0.2); BASOPHILS % (AUTO) 1.2 % (0.0-2.0); EOSINOPHILS # (AUTO) 0.2 K/uL (0.0-0.4); HEMATOCRIT 34.6 % (36-48); HEMOGLOBIN 11.4 g/dL (12.0-16.0); LYMPHOCYTES # (AUTO) 1.1 K/uL (1.0-5.5); MEAN CORPUSCULAR HEMOGLOBIN 31 pg (27-31); MEAN CORPUSCULAR HGB CONC 33 % (32-36); MEAN CORPUSCULAR VOLUME 94 fL (79.0-98.0); MONOCYTES # (AUTO) 0.5 K/uL (0.0-1.0); MONOCYTES % (AUTO) 9.4 % (1.7-9.3); NEUTROPHILS # (AUTO) 3.3 K/uL (1.8-7.7); NEUTROPHILS % (AUTO) 64.4 % (40.0-70.0); PLATELET COUNT (AUTO) 290 K/uL (130-430); RED BLOOD CELL COUNT(AUTO) 3.69 MIL/uL (4.2-6.2); RED CELL DISTRIBUTION WIDTH 14.6 % (9.0-15.0); WHITE BLOOD COUNT (AUTO) 5.1 K/uL (4.8-10.8)
[2021-01-11] MEDS: ONDANSETRON HCL 4 MG/2 ML VIAL IVP PRN ×2 (06:32→20:00)
[2021-01-11 06:38] LABS: CALCIUM 8.6 mg/dL (8.4-11.0); CREATININE 0.81 mg/dL (0.55-1.30); POTASSIUM 3.8 mmol/L (3.5-5.1)
[2021-01-11] MEDS ORDERED: BUPIVACAINE LIPOSOME/PF 266 MG/20 ML VIAL INFIL ONE (11:58)
[2021-01-11] MEDS ORDERED: NALOXONE HCL 0.4 MG/ML AMP (NARCAN) IVP PRN (15:00)
[2021-01-11] MEDS ORDERED: LR 1,000 ML IV SCH (15:00)
[2021-01-11] MEDS ORDERED: HYDROmorphone 1 MG/ML INJ. CARTRIDGE IVP PRN (15:00)
[2021-01-11] MEDS ORDERED: MEPERIDINE HCL/PF 25 MG/ML DISP.SYRIN IVP PRN (15:00)
[2021-01-11] MEDS ORDERED: MIDAZOLAM HCL 5 MG/5 ML VIAL IVP PRN (15:00)
[2021-01-11] MEDS ORDERED: ePHEDrine sulfate 50 MG/ML VIAL IVP PRN (15:00)
[2021-01-11] MEDS: LORazepam 2 MG/ML VIAL IVP PRN (17:37)
[2021-01-11] MEDS: D5NS 1,000 ML IV SCH ×2 (19:00→20:54)
[2021-01-11] MEDS: HEPARIN SODIUM,PORCINE 5,000 UNITS/ML VIAL SUBCUT SCH (20:15)
[2021-01-11] MEDS ORDERED: BENZOCAINE/MENTHOL 1 EACH LOZENGE MM PRN (22:30)
[2021-01-11] MEDS: KETOROLAC TROMETHAMINE 30 MG VIAL IM SCH (22:32)
[2021-01-11] MEDS ORDERED: KETOROLAC TROMETHAMINE 30 MG VIAL ONE (22:33)
[2021-01-11] MEDS ORDERED: BENZOCAINE/MENTHOL 1 EACH LOZENGE ONE (22:34)
[2021-01-12 00:35] VITALS: BP_SYST 138
[2021-01-12] MEDS: LORazepam 2 MG/ML VIAL IVP PRN (03:51)
[2021-01-12] MEDS: D5NS 1,000 ML IV SCH ×2 (05:00→09:17)
[2021-01-12] MEDS: KETOROLAC TROMETHAMINE 30 MG VIAL IM SCH ×2 (05:46→14:54)
[2021-01-12 07:02] LABS: BASOPHILS % (AUTO) 0.9 % (0.0-2.0); EOSINOPHILS # (AUTO) 0.2 K/uL (0.0-0.4); EOSINOPHILS % (AUTO) 2.9 % (0.0-4.0); HEMATOCRIT 35.8 % (36-48); HEMOGLOBIN 11.8 g/dL (12.0-16.0); LYMPHOCYTES # (AUTO) 0.7 K/uL (1.0-5.5); LYMPHOCYTES % (AUTO) 12.7 % (20.5-51.5); MEAN CORPUSCULAR HEMOGLOBIN 31 pg (27-31); MEAN CORPUSCULAR HGB CONC 33 % (32-36); MEAN CORPUSCULAR VOLUME 94 fL (79.0-98.0); MONOCYTES # (AUTO) 0.4 K/uL (0.0-1.0); MONOCYTES % (AUTO) 7.7 % (1.7-9.3); NEUTROPHILS # (AUTO) 4.2 K/uL (1.8-7.7); NEUTROPHILS % (AUTO) 75.8 % (40.0-70.0); PLATELET COUNT (AUTO) 302 K/uL (130-430); RED CELL DISTRIBUTION WIDTH 14.2 % (9.0-15.0); WHITE BLOOD COUNT (AUTO) 5.5 K/uL (4.8-10.8)
[2021-01-12 07:09] LABS: CREATININE 0.76 mg/dL (0.55-1.30); POTASSIUM 3.9 mmol/L (3.5-5.1)
[2021-01-12 08:00] VITALS: BP_SYST 102
[2021-01-12] MEDS: HEPARIN SODIUM,PORCINE 5,000 UNITS/ML VIAL SUBCUT SCH ×2 (09:07→21:00)
[2021-01-12] MEDS: MORPHINE 2 MG/ML INJ. SYRINGE IVP PRN ×2 (09:09→21:04)
[2021-01-12 10:02] VITALS: BP_SYST 102
[2021-01-12 12:14] VITALS: BP_SYST 100
[2021-01-12 15:42] LABS: INR 1.1 (0.8-1.2); PROTHROMBIN TIME 11.4 SECS (9.5-12.5)
[2021-01-12 16:06] VITALS: BP_SYST 142
[2021-01-12 20:00] VITALS: BP_SYST 131
[2021-01-12] MEDS: ONDANSETRON HCL 4 MG/2 ML VIAL IVP PRN (21:01)
[2021-01-13 00:36] VITALS: BP_SYST 118
[2021-01-13] MEDS: D5NS 1,000 ML IV SCH ×3 (01:00→22:13)
[2021-01-13] MEDS: ONDANSETRON HCL 4 MG/2 ML VIAL IVP PRN (02:51)
[2021-01-13] MEDS: MORPHINE 2 MG/ML INJ. SYRINGE IVP PRN (02:52)
[2021-01-13 08:26] VITALS: BP_SYST 98
[2021-01-13] MEDS: HEPARIN SODIUM,PORCINE 5,000 UNITS/ML VIAL SUBCUT SCH ×2 (09:00→21:00)
[2021-01-13 12:14] VITALS: BP_SYST 102
[2021-01-13 16:13] VITALS: BP_SYST 94
[2021-01-13 21:09] VITALS: BP_SYST 90
[2021-01-14 00:07] VITALS: BP_SYST 92
[2021-01-14] MEDS: ONDANSETRON HCL 4 MG/2 ML VIAL IVP PRN ×2 (06:17→14:31)
[2021-01-14] MEDS: MORPHINE 2 MG/ML INJ. SYRINGE IVP PRN ×2 (06:18→14:48)
[2021-01-14] MEDS: D5NS 1,000 ML IV SCH ×2 (07:00→20:34)
[2021-01-14 08:02] VITALS: BP_SYST 98
[2021-01-14 08:34] LABS: CALCIUM 7.1 mg/dL (8.4-11.0); CREATININE 0.83 mg/dL (0.55-1.30); POTASSIUM 4.2 mmol/L (3.5-5.1)
[2021-01-14] MEDS: HEPARIN SODIUM,PORCINE 5,000 UNITS/ML VIAL SUBCUT SCH ×3 (09:00→20:40)
[2021-01-14 09:53] LABS: BASOPHILS % (AUTO) 0.8 % (0.0-2.0); EOSINOPHILS # (AUTO) 0.2 K/uL (0.0-0.4); EOSINOPHILS % (AUTO) 5.1 % (0.0-4.0); HEMOGLOBIN 9.4 g/dL (12.0-16.0); LYMPHOCYTES # (AUTO) 0.7 K/uL (1.0-5.5); LYMPHOCYTES % (AUTO) 14.7 % (20.5-51.5); MEAN CORPUSCULAR HEMOGLOBIN 31 pg (27-31); MEAN CORPUSCULAR HGB CONC 33 % (32-36); MEAN CORPUSCULAR VOLUME 95 fL (79.0-98.0); MONOCYTES # (AUTO) 0.4 K/uL (0.0-1.0); MONOCYTES % (AUTO) 9.1 % (1.7-9.3); NEUTROPHILS # (AUTO) 3.2 K/uL (1.8-7.7); NEUTROPHILS % (AUTO) 70.3 % (40.0-70.0); PLATELET COUNT (AUTO) 238 K/uL (130-430); RED BLOOD CELL COUNT(AUTO) 3.06 MIL/uL (4.2-6.2); RED CELL DISTRIBUTION WIDTH 14.6 % (9.0-15.0); WHITE BLOOD COUNT (AUTO) 4.5 K/uL (4.8-10.8)
[2021-01-14] MEDS ORDERED: HYDR-3917 PO (11:44)
[2021-01-14 20:00] VITALS: BP_SYST 108
[2021-01-15] VITALS: BP_SYST 105
[2021-01-15] MEDS: D5NS 1,000 ML IV SCH ×3 (05:29→22:35)
[2021-01-15] MEDS: ONDANSETRON HCL 4 MG/2 ML VIAL IVP PRN (05:47)
[2021-01-15 06:57] LABS: BASOPHILS % (AUTO) 1.1 % (0.0-2.0); EOSINOPHILS # (AUTO) 0.2 K/uL (0.0-0.4); EOSINOPHILS % (AUTO) 5.2 % (0.0-4.0); HEMATOCRIT 30.2 % (36-48); HEMOGLOBIN 9.9 g/dL (12.0-16.0); LYMPHOCYTES # (AUTO) 0.8 K/uL (1.0-5.5); LYMPHOCYTES % (AUTO) 20.3 % (20.5-51.5); MEAN CORPUSCULAR HEMOGLOBIN 31 pg (27-31); MEAN CORPUSCULAR HGB CONC 33 % (32-36); MEAN CORPUSCULAR VOLUME 94 fL (79.0-98.0); MONOCYTES # (AUTO) 0.5 K/uL (0.0-1.0); MONOCYTES % (AUTO) 11.9 % (1.7-9.3); NEUTROPHILS # (AUTO) 2.4 K/uL (1.8-7.7); NEUTROPHILS % (AUTO) 61.5 % (40.0-70.0); PLATELET COUNT (AUTO) 245 K/uL (130-430); RED BLOOD CELL COUNT(AUTO) 3.23 MIL/uL (4.2-6.2); RED CELL DISTRIBUTION WIDTH 13.9 % (9.0-15.0); WHITE BLOOD COUNT (AUTO) 3.9 K/uL (4.8-10.8)
[2021-01-15 07:09] LABS: CALCIUM 7.9 mg/dL (8.4-11.0); CREATININE 0.76 mg/dL (0.55-1.30); POTASSIUM 4.2 mmol/L (3.5-5.1)
[2021-01-15] MEDS ORDERED: GASTROGRAFIN 120 ML ONE (08:31)
[2021-01-15] MEDS: HEPARIN SODIUM,PORCINE 5,000 UNITS/ML VIAL SUBCUT SCH ×2 (09:00→21:00)
[2021-01-15 09:49] VITALS: BP_SYST 88
[2021-01-15] MEDS: MORPHINE 2 MG/ML INJ. SYRINGE IVP PRN (10:14)
[2021-01-15 12:24] VITALS: BP_SYST 108
[2021-01-15 18:09] VITALS: BP_SYST 123
[2021-01-15 20:00] VITALS: BP_SYST 144
[2021-01-15] MEDS: MAG-AL HYDROX/SIMETH 30 ML UDC PO PRN (22:29)
[2021-01-16 00:41] VITALS: BP_SYST 114
[2021-01-16] MEDS: MAG-AL HYDROX/SIMETH 30 ML UDC PO PRN (06:30)
[2021-01-16 07:02] LABS: EOSINOPHILS # (AUTO) 0.2 K/uL (0.0-0.4); EOSINOPHILS % (AUTO) 3.4 % (0.0-4.0); HEMATOCRIT 30.5 % (36-48); HEMOGLOBIN 10.4 g/dL (12.0-16.0); LYMPHOCYTES % (AUTO) 22.5 % (20.5-51.5); MEAN CORPUSCULAR HEMOGLOBIN 32 pg (27-31); MEAN CORPUSCULAR HGB CONC 34 % (32-36); MEAN CORPUSCULAR VOLUME 93 fL (79.0-98.0); MONOCYTES # (AUTO) 0.5 K/uL (0.0-1.0); MONOCYTES % (AUTO) 10.9 % (1.7-9.3); NEUTROPHILS # (AUTO) 2.8 K/uL (1.8-7.7); NEUTROPHILS % (AUTO) 62.2 % (40.0-70.0); PLATELET COUNT (AUTO) 280 K/uL (130-430); RED BLOOD CELL COUNT(AUTO) 3.29 MIL/uL (4.2-6.2); WHITE BLOOD COUNT (AUTO) 4.5 K/uL (4.8-10.8)
[2021-01-16 07:35] LABS: CALCIUM 7.7 mg/dL (8.4-11.0); CREATININE 0.79 mg/dL (0.55-1.30); POTASSIUM 3.4 mmol/L (3.5-5.1)
[2021-01-16 08:10] VITALS: BP_SYST 130
[2021-01-16] MEDS: D5NS 1,000 ML IV SCH (08:39)
[2021-01-16] MEDS: HEPARIN SODIUM,PORCINE 5,000 UNITS/ML VIAL SUBCUT SCH (08:40)
[2021-01-16 12:29] VITALS: BP_SYST 149
== END 2021-01-16 13:10 | disposition left against medical advice (07) | DRG 229 ==
LOC: SED 20:36 → SMU 23:37
PROVIDERS: ADMIT General Practice; ATTEND General Practice
PROC: 0W9G3ZZ Drainage of Peritoneal Cavity, Percutaneous Approach (ICD-10-PCS; 2021-01-11)
PROC: 0WPG4YZ Removal of Other Device from Peritoneal Cavity, Percutaneous Endoscopic Approach (ICD-10-PCS; principal; 2021-01-11 12:00)
DX: K52.9 Noninfective gastroenteritis and colitis, unspecified (principal); R18.0 Malignant ascites; C78.4 Secondary malignant neoplasm of small intestine; K31.5 Obstruction of duodenum; E44.1 Mild protein-calorie malnutrition; C78.5 Secondary malignant neoplasm of large intestine and rectum; C18.9 Malignant neoplasm of colon, unspecified; R59.9 Enlarged lymph nodes, unspecified; D64.9 Anemia, unspecified; C78.6 Secondary malignant neoplasm of retroperitoneum and peritoneum; E87.6 Hypokalemia; Z90.49 Acquired absence of other specified parts of digestive tract; Z90.710 Acquired absence of both cervix and uterus; Z80.3 Family history of malignant neoplasm of breast; Z68.1 Body mass index [BMI] 19.9 or less, adult
CPT/HCPCS: 36415; 71045; 74018; 80048; 80053; 81000; 83036; 83690; 83735; 85025; 85610-TC; 85730-TC; 86886; 86900; 86901; 87070; 87081; 88108; 88305; 93005; 94010; 96361; 96374; 96375; 99285; C1727; C9113; C9290; J0330; J0694; J0780; J1100; J1170; J1644; J1885; J2001; J2060; J2250; J2270; J2370; J2405; J2704; J2765; J3480; J3490; J7050; J7060; J7120; Q9963